=== PATIENT | male | born 1995 | race Caucasian/White ===

== ENCOUNTER 2024-03-21 22:20 | Emergency (ER) | payer BC, OTHER ==
[~2024-03-21] VITALS: Ht 175.3 cm; Wt 83.9 kg
[2024-03-22 04:33] VITALS: BP 132/83; TEMP 98; O2SAT 99
== END 2024-03-22 04:34 | disposition home or self-care (01) ==
LOC: ER 22:27
DX: R60.0 Localized edema (principal); M79.604 Pain in right leg
CPT/HCPCS: 99284; 93971; J7040; A4223